=== PATIENT | female | born 1995 | race American Indian/Alaskan Native ===

== ENCOUNTER 2021-10-18 15:49 | Outpatient (CLI) | payer MEDICAID ==
[2021-10-18 16:36] VITALS: BP 137/90
--- NOTE | 2021-10-18 17:24 | Ultrasound Report ---
US OB limited, US OB BPP wo non-stress INDICATION: low ganesh wellbeing. TECHNIQUE: Transabdominal. COMPARISON: None available. FINDINGS: There is a single intrauterine . Heart Rate: 156 beats per minute. Position: cephalic. Amniotic Fluid Volume: normal Amniotic Fluid Index (GANESH) in cm (if calculated): 7.3. Biophysical Profile: breathing movements: 2 movements:2 posture and tone:2 Qualitative amniotic fluid volume: 2 IMPRESSION: 1. Amniotic fluid is lower limits of normal. 2. Biophysical profile is 8 of 8. Signer Name: Warren Naranjo MD Signed: 10/18/2021 5:20 PM Workstation Name: [id number]
== END 2021-10-18 21:03 | disposition home or self-care (01) ==
LOC: TRG 15:49 → APU 15:51 → TRG 21:03
PROVIDERS: ATTEND Obstetrics & Gynecology
DX: Z34.83 Encounter for supervision of other normal pregnancy, third trimester (principal); Z3A.40 40 weeks gestation of pregnancy
CPT/HCPCS: 59025; 76815; 76819